=== PATIENT | female | born 1960 | race Caucasian/White ===

== ENCOUNTER → 2017-01-15 | Outpatient (CLI) | payer BC ==
[~2017-01-15] MED LIST: CYMBALTA 30MG30 MG PO; FERGON PO; LEVOXYL0.088 MG PO; MIRALAX PA17 GM/Dose PO; NORCO 325 MG-51 TAB PO; OMNICEF 300MG300 MG PO; PLAQUENIL 200M200 MG PO; PRILOSEC 20MG20 MG PO; PRINIVIL10 MG PO; TIROSINT50 MCG PO; ZANTAC 150MG T150 MG PO; ZOFRAN 4MG T4 MG/TAB PO
== END ==
LOC: COL.RAD 08:31
DX: R11.10 Vomiting, unspecified (principal)
CPT/HCPCS: A9541

== ENCOUNTER 2017-03-04 06:29 | Outpatient (CLI) | payer BC ==
[2017-03-04] VITALS (28 sets, daily range): BP systolic 92–159; BP diastolic 46–98; PULSE 53–85; TEMP 97.3
[~2017-03-04] VITALS: Ht 172.8 cm; Wt 76.0 kg
[~2017-03-04 06:29] MED LIST changes: -LEVOXYL0.088 MG PO; -PLAQUENIL 200M200 MG PO; -ZANTAC 150MG T150 MG PO; -ZOFRAN 4MG T4 MG/TAB PO
[2017-03-04 07:09] LABS: BASO % 0.5 % (0.0-2.0); EOS # 0.4 (0.0-0.7); EOS % 6.2 % (0-4.0); GRAN # 2.7 (1.4-6.5); GRAN % 46.4 % (42.2-75.2); LYMPH # 2.2 (1.2-3.4); LYMPH % 37.3 % (20.0-51.0); MEAN CELL VOLUME 92 fl (80.0-100.0); MEAN CORPUSCULAR HGB CONC 31 g/dl (33.0-37.0); MEAN PLATELET VOLUME 9.6 fl (7.4-10.4); MONO # 0.6 (0.1-0.6); MONO % 9.4 % (1.7-9.3); PLATELET COUNT 232 K/mm3 (130-400); RED BLOOD COUNT 3.61 M/mm3 (4.10-5.30); REDCELL DISTRIBUTION WIDTH-CV 13.9 % (11.5-14.5); WHITE BLOOD COUNT 5.9 K/mm3 (4.8-10.8)
[2017-03-04 07:19] LABS: HEMATOCRIT 33.1 % (37.0-47.0); HEMOGLOBIN 10.4 g/dl (12.5-16.0); MEAN CORPUSCULAR HEMOGLOBIN 29 pg (27.0-31.0)
[2017-03-04 07:25] LABS: PROTHROMBIN TIME 11.4 SECONDS (9.7-12.8)
[2017-03-04] MEDS ORDERED: LEVOXYL0.088 MG PO (07:54)
[2017-03-04] MEDS ORDERED: ZANTAC 150MG T150 MG PO (07:55)
[2017-03-04] MEDS ORDERED: ZOFRAN 4MG T4 MG/TAB PO (07:56)
[2017-03-04] MEDS ORDERED: PLAQUENIL 200M200 MG PO (07:57)
== END 2017-03-04 15:39 | disposition home or self-care (01) ==
LOC: COL.RAD 06:29
PROVIDERS: Internal Medicine
DX: N17.9 Acute kidney failure, unspecified (principal); I10 Essential (primary) hypertension; F32.9 Major depressive disorder, single episode, unspecified; M79.7 Fibromyalgia; M47.892 Other spondylosis, cervical region
CPT/HCPCS: J2250; J3010